=== PATIENT | male | born 1990 | race Caucasian/White ===

== ENCOUNTER 2017-04-02 17:25 | Emergency (ER) | payer SELFPAY ==
[2017-04-02 17:33] VITALS: BP 110/65; PULSE 68; TEMP 98; BMI 23.6
--- NOTE | 2017-04-02 18:58 | PDOC ---
History of Present Illness - General Chief Complaint: Laceration Stated Complaint: LACERATION Time Seen by Provider: 04/02/17 17:58 History Source: Patient Exam Limitations: No Limitations - History of Present Illness Initial Comments: 04/02/17 18:34 26 yr male with laceration to left eyebrow after he tripped and fell while dancing into a drum. no loc Past History - Past Medical History Allergies/Adverse Reactions: Allergies Allergy/AdvReac Type Severity Reaction Status Date / Time No Known Allergies Allergy Verified 04/02/17 17:30 Home Medications: Ambulatory Orders NK [No Known Home Medication] 04/02/17 Other medical history: none - Immunization History Immunization Up to Date: Yes - Psycho/Social/Smoking Cessation Hx Anxiety: No Suicidal Ideation: No Smoking History: Never smoked Have you smoked in the past 12 months: No Information on smoking cessation initiated: No Hx Alcohol Use: No Drug/Substance Use Hx: No Substance Use Type: None *Physical Exam - Vital Signs Last Vital Signs Temp Pulse Resp BP Pulse Ox 98.0 F 68 18 110/65 100 04/02/17 17:31 04/02/17 17:31 04/02/17 17:31 04/02/17 17:31 04/02/17 17:31 - Physical Exam General Appearance: Yes: Nourished, Appropriately Dressed HEENT: positive: EOMI, TESSA, TMs Normal, Pharynx Normal Neck: positive: Supple Integumentary: positive: Normal Color, Dry, Warm, Other (left eyebrow with 3cm linear laceration partial thickness) Neurologic: positive: Fully Oriented, Alert, Normal Mood/Affect, Normal Response , Motor Strength 5/5 Procedures - Laceration/Wound Repair Left Face Wound Length: 2.6 to 5.0 cm Wound Explored: clean Wound's Depth, Shape: into muscle, linear Irrigated w/ Saline: Yes Betadine Prep: Yes Anesthesia: 1% Lidocaine w/ Epi Amount of Anesthetic (ccs): 4 Wound Repaired With: Sutures Suture Size/Type: 5:0, nylon Number of Sutures: 8 Layer Closure: Yes Deep Layer Suture Size/Type: 6:0, chromic Number of Deep Layer Sutures: 3 Sterile Dressing Applied: Yes Progress: 04/02/17 18:59 bacitracin placed, tolerated well Medical Decision Making - Medical Decision Making 07/08/17 18:59 cc: eyebrow laceration no LOC, no eye pain or changes in vision will suture closed tetanus is less than 1 yr no med history or allergies pt agrees with plan all questions asked and answered *DC/Admit/Observation/Transfer Diagnosis at time of Disposition: Laceration - Discharge Dispostion Disposition: HOME Condition at time of disposition: Improved - Patient Instructions Printed Discharge Instructions: DI for Laceration Repair Additional Instructions: keep dry return in 5-7 days April 08 for suture removal apply a thin layer of ointment to the wound once a day and keep covered you should gently clean with warm water and soap on a cotton ball once a day to remove any scabbing
== END 2017-04-02 18:41 | disposition home or self-care (01) ==
LOC: JERFT 17:25
PROC: 0JQ10ZZ Repair Face Subcutaneous Tissue and Fascia, Open Approach (ICD-10-PCS; principal; 2017-04-02)
DX: S01.112A Laceration without foreign body of left eyelid and periocular area, initial encounter (principal); W01.198A Fall on same level from slipping, tripping and stumbling with subsequent striking against other object, initial encounter; Y93.41 Activity, dancing; Y92.89 Other specified places as the place of occurrence of the external cause; Y99.8 Other external cause status
CPT/HCPCS: 99282-25